=== PATIENT | female | born 1950 | race Caucasian/White ===

== ENCOUNTER 2022-08-27 06:55 | Emergency (ER) | payer MEDICARE, BC ==
[~2022-08-27] VITALS: Ht 172.7 cm; Wt 68.0 kg
[2022-08-27] MEDS ORDERED: FENTANYL CITRATE/PF 50MCG/ML 2ML VIAL IV ONE (07:45)
[2022-08-27 07:46] LABS: BASOPHILS % 0.4 % (0.0-2.0); EOSINOPHILS % 1.3 % (0.0-5.0); HEMATOCRIT. 40.9 % (36.0-48.0); HEMOGLOBIN. 13.7 g/dL (12.0-16.0); LYMPHOCYTES % 27.5 % (20.0-50.0); MEAN CORPUSCULAR HEMOGLOBIN 32.4 pg (28.0-32.0); MEAN CORPUSCULAR VOLUME 96.7 fL (81.0-99.0); MEAN PLATELET VOLUME 8.1 fl (7.4-10.4); MONOCYTES % 7.7 % (2.0-8.0); NEUTROPHILS % 63.1 % (40.0-76.0); PLATELET 293 x1000/uL (130-400); RED BLOOD CELL COUNT 4.23 mill/uL (4.2-5.4); RED CELL DISTRIBUTION WIDTH 12.8 % (11.6-14.6)
[2022-08-27 07:54] LABS: CHLORIDE 114 mEq/L (98-107)
[2022-08-27 07:56] LABS: PROTHROMBIN TIME 10.7 sec (9.6-11.0)
[2022-08-27] MEDS ORDERED: FENTANYL CITRATE/PF 50MCG/ML 2ML VIAL IV NR (10:15)
[2022-08-27] MEDS ORDERED: PROPOFOL 200MG/20ML VIAL IV NR (10:15)
[2022-08-27] MEDS ORDERED: NALOXONE HCL 0.4 MG/ML 1ML VIAL IV ONE (11:00)
[2022-08-27] MEDS ORDERED: T3 PO ×2 (12:20→12:22)
[2022-08-27 13:00] VITALS: BP 142/66
== END 2022-08-27 13:08 | disposition home or self-care (01) ==
LOC: ER 07:08
DX: S82.452A Displaced comminuted fracture of shaft of left fibula, initial encounter for closed fracture (principal); S82.52XA Displaced fracture of medial malleolus of left tibia, initial encounter for closed fracture; F41.9 Anxiety disorder, unspecified; E78.00 Pure hypercholesterolemia, unspecified; I10 Essential (primary) hypertension; W01.0XXA Fall on same level from slipping, tripping and stumbling without subsequent striking against object, initial encounter; Y93.89 Activity, other specified; Y92.89 Other specified places as the place of occurrence of the external cause; Y99.8 Other external cause status
CPT/HCPCS: 27788; 36415; 73590; 73600; 73610; 80053; 85025; 85610; 86850; 86900; 86901; 96374; 99152; 99291; J2704; J3010